=== PATIENT | male | born 1955 | race Caucasian/White ===

== ENCOUNTER 2023-02-05 08:07 | Emergency (ER) | payer MEDICARE ==
[~2023-02-05] VITALS: Ht 172.7 cm; Wt 110.5 kg
[2023-02-05 08:16] VITALS: TEMP 97
[2023-02-05] MEDS ORDERED: morphine 2 MG/ML inj. syringe IV PRN (09:10)
[2023-02-05] MEDS ORDERED: normal saline 1000ML IV soln IVB ONE (09:10)
[2023-02-05] MEDS ORDERED: ondansetron/PF 4mg/2ml inj IV ONE (09:10)
[2023-02-05] MEDS ORDERED: ketorolac tromethamine 15mg/ml inj. IV ONE (09:10)
[2023-02-05 09:56] LABS: BASOPHILS % (AUTO) 0.4 % (0-1); EOSINOPHILS % (AUTO) 0.6 % (0-6); HEMATOCRIT 44.5 % (42.0-52.0); HEMOGLOBIN 15.3 g/dl (14.0-17.9); LYMPHOCYTES # (AUTO) 0.8 X10'3 (1.1-4.8); MEAN CORPUSCULAR HEMOGLOBIN 30.7 PG (27.0-31.0); MEAN CORPUSCULAR HGB CONC 34.4 g/dL (33.0-36.5); MEAN CORPUSCULAR VOLUME 89.4 FL (78-98); MEAN PLATELET VOLUME 8.7 FL (7.4-10.4); MONOCYTES # (AUTO) 0.5 X10'3 (0-0.9); MONOCYTES % (AUTO) 7.7 % (2-12); NEUTROPHILS # (AUTO) 5.7 X10'3 (1.8-7.7); NEUTROPHILS % (AUTO) 80.3 % (42-75); PLATELET COUNT 212 X10'3 (140-440); RED BLOOD COUNT 4.98 X10'6 (4.70-6.10); RED CELL DISTRIBUTION WIDTH 14.4 % (11.5-14.5); WHITE BLOOD COUNT 7.1 X10'3 (4.5-11.0)
[2023-02-05 10:22] LABS: ALANINE AMINOTRANSFERASE 47 U/L (12-78); ALBUMIN 4.5 G/DL (3.4-5.0); ALBUMIN/GLOBULIN RATIO 1.1 (1.1-1.5); ALKALINE PHOSPHATASE 67 IU/L (46-116); ANION GAP 7 (8-16); ASPARTATE AMINO TRANSFERASE 23 U/L (10-37); BILIRUBIN,TOTAL 0.9 MG/DL (0.1-1.0); BLOOD UREA NITROGEN 26 MG/DL (7-18); BUN/CREATININE RATIO 28.6 (10.0-20.0); CALCIUM 9.1 MG/DL (8.5-10.1); CHLORIDE 101 MMOL/L (99-107); CREATININE 0.91 MG/DL (0.60-1.10); GLUCOSE 142 MG/DL (70-104); LIPASE 34 U/L (16-77); POTASSIUM 4.5 MMOL/L (3.5-5.1); SODIUM 136 MMOL/L (135-145); TOTAL CARBON DIOXIDE 27.6 MMOL/L (24-32); TOTAL PROTEIN 8.6 G/DL (6.4-8.2); eCRCL 75 ML/MIN; eGFR 83 ML/MIN
[2023-02-05 10:38] LABS: BILIRUBIN,URINE NEGATIVE (Neg); CLARITY,URINE CLOUDY (Clear); COLOR,URINE YELLOW (Yellow); GLUCOSE, URINE NEGATIVE (Neg); KETONES,URINE NEGATIVE (Neg); LEUKOCYTE ESTERASE ,URINE NEGATIVE (Neg); NITRITES, URINE NEGATIVE (Neg); OCCULT BLOOD,URINE LARGE (Neg); PROTEIN,URINE TRACE mg/dl (Neg); UROBILINOGEN,URINE 0.2 E.U/dL (0.2-1.0)
[2023-02-05 10:45] LABS: UA COLLECTION TYPE CLN CATCH MIDSTREAM
[2023-02-05] MEDS ORDERED: ONDA4TAB12 PO (10:49)
[2023-02-05] MEDS ORDERED: IBUP-1985 PO (10:49)
[2023-02-05 10:50] LABS: RBC,URINE TNTC /HPF (0-2)
[2023-02-05 10:54] LABS: BACTERIA,URINE FEW /HPF (Neg)
[2023-02-05 11:00] LABS: TRANSITIONAL EPI CELLS,URINE FEW /HPF; WBC,URINE 0-4 /HPF (0-4)
[2023-02-05 11:04] LABS: MUCUS STRANDS FEW /LPF (Neg)
[2023-02-05 11:05] LABS: SQUAMOUS EPITHELIAL CELL,UR MODERATE /LPF (FEW)
[2023-02-05 11:36] VITALS: BP 161/77; PULSE 44; RESP 18; O2SAT 96
== END 2023-02-05 11:38 | disposition home or self-care (01) ==
LOC: ER 08:07
DX: N23 Unspecified renal colic (principal)
CPT/HCPCS: 36415; 74176; 80053; 81001; 83690; 85025; 96361; 96374; 96375; 99285; J1885; J2270; J2405; J7030